=== PATIENT | male | born 1980 | race Caucasian/White ===

== ENCOUNTER 2017-03-24 09:10 | Emergency (ER) | payer OTHER ==
[~2017-03-24] VITALS: Ht 175.2 cm; Wt 59.0 kg
[~2017-03-24 09:10] MED LIST: 'XANAX1 MG PO; AMOXICILLIN500 MG PO; CLINDAMYCIN HC300 MG PO; FLEXERIL10 MG PO; HYDROCODONE BIT1 T11 PO; MEDROL DOSEPAK4 MG PO; MOTRIN800 MG PO; NAPROSYN500 MG PO; NKHM; ONDANSETRON4 MG SL; TRAMADOL HCL50 MG PO; TRIMOX500 MG PO; TYLENOL W/CODEI1 TA4 PO; ULTRAM50 MG PO; VALIUM10 MG PO; VICODIN ES 7501 TAB PO; ZYPREXA5 M1 PO
[2017-03-24 09:21] VITALS: BP 129/90
[2017-03-24] MEDS ORDERED: OLANZAPINE15 M2 PO (09:23)
[2017-03-24] MEDS ORDERED: ZOFRAN ODT4 MG SL (10:22)
== END 2017-03-24 11:09 | disposition home or self-care (01) ==
LOC: ED 09:10
DX: K52.9 Noninfective gastroenteritis and colitis, unspecified (principal); F17.200 Nicotine dependence, unspecified, uncomplicated; Z91.018 Allergy to other foods; Z90.49 Acquired absence of other specified parts of digestive tract

== ENCOUNTER 2017-03-26 09:34 | Emergency (ER) | payer OTHER ==
[~2017-03-26] VITALS: Ht 175.2 cm; Wt 59.0 kg
[~2017-03-26 09:34] MED LIST changes: +OLANZAPINE15 M2 PO; +ZOFRAN ODT4 MG SL
[2017-03-26 09:48] VITALS: BP 127/81
[2017-03-26 11:07] LABS: BASO # 0.1 10*3/uL (0.0-0.1); BASO % 0.6 % (0.0-1.0); EOS # 0.1 10*3/uL (0.0-0.4); EOS % 0.6 % (1.0-4.0); HEMATOCRIT 43.2 % (42.0-52.0); HEMOGLOBIN 15.2 g/dl (14.0-18.0); LYMPH # 2.8 10*3/uL (1.3-4.4); LYMPH % 26.6 % (27.0-41.0); MEAN CELL VOLUME 94.3 fl (80.0-94.0); MEAN CORPUSCULAR HGB 33.2 pg (27.0-31.0); MEAN CORPUSCULAR HGB CONC 35.2 g/dl (33.0-37.0); MONO # 0.7 10*3/uL (0.1-1.0); MONO % 7.1 % (3.0-9.0); NEUT # 6.7 10*3/uL (2.3-7.9); NEUT % 64.8 % (47.0-73.0); PLATELET COUNT AUTOMATED 321 10*3/uL (130-400); RED BLOOD COUNT 4.58 10*6/uL (4.50-5.90); RED CELL DISTRI WIDTH 11.9 % (0-14.5); WHITE BLOOD COUNT 10.4 10*3/uL (4.8-10.8)
[2017-03-26 11:20] LABS: ALBUMIN 4.3 gm/dl (3.1-4.5); ALKALINE PHOSPHATASE 64 U/L (45-117); BILIRUBIN, DIRECT 0.1 mg/dL (0.0-0.2); BILIRUBIN, TOTAL 0.6 mg/dl (0.2-1.0); BUN 5 mg/dl (7-24); CARBON DIOXIDE 26 mmol/L (21-32); CHLORIDE 107 mmol/L (98-107); EST GLOM FILT AFRICAN AMERICAN > 60 ml/min; GLUCOSE 90 mg/dL (65-99); POTASSIUM 4.2 mmol/L (3.5-5.1); SGOT/AST 10 IU/L (3-35); SGPT/ALT 18 U/L (12-78); SODIUM 141 mmol/L (136-145); TOTAL PROTEIN 8.1 gm/dL (6.4-8.2)
[2017-03-26 13:04] LABS: LA>2 REFLEX 2 HR DRAW NOW
== END 2017-03-26 12:00 | disposition left against medical advice (07) ==
LOC: ED 09:34
PROVIDERS: Emergency Medicine
DX: R10.9 Unspecified abdominal pain (principal); R19.7 Diarrhea, unspecified; R11.2 Nausea with vomiting, unspecified; F17.200 Nicotine dependence, unspecified, uncomplicated; F12.90 Cannabis use, unspecified, uncomplicated; Z90.49 Acquired absence of other specified parts of digestive tract; Z91.018 Allergy to other foods

== ENCOUNTER 2017-03-28 09:03 | Emergency (ER) | payer OTHER ==
[~2017-03-28] VITALS: Ht 175.2 cm; Wt 59.0 kg
[2017-03-28] MEDS ORDERED: ONDANSETRON HYDR4 M1 PO (09:15)
[2017-03-28 09:38] LABS: BASO # 0.1 10*3/uL (0.0-0.1); BASO % 0.7 % (0.0-1.0); EOS # 0.1 10*3/uL (0.0-0.4); EOS % 0.9 % (1.0-4.0); HEMATOCRIT 42.3 % (42.0-52.0); LYMPH # 1.8 10*3/uL (1.3-4.4); LYMPH % 17.3 % (27.0-41.0); MEAN CELL VOLUME 93.8 fl (80.0-94.0); MEAN CORPUSCULAR HGB 33.3 pg (27.0-31.0); MEAN CORPUSCULAR HGB CONC 35.5 g/dl (33.0-37.0); MEAN PLATELET VOLUME 9.8 fl (9.6-12.3); MONO # 0.7 10*3/uL (0.1-1.0); MONO % 6.5 % (3.0-9.0); NEUT # 7.8 10*3/uL (2.3-7.9); NEUT % 74.4 % (47.0-73.0); PLATELET COUNT AUTOMATED 308 10*3/uL (130-400); RED BLOOD COUNT 4.51 10*6/uL (4.50-5.90); RED CELL DISTRI WIDTH 11.9 % (0-14.5); WHITE BLOOD COUNT 10.4 10*3/uL (4.8-10.8)
[2017-03-28 09:55] LABS: ALBUMIN 4.4 gm/dl (3.1-4.5); ALKALINE PHOSPHATASE 62 U/L (45-117); BILIRUBIN, TOTAL 0.7 mg/dl (0.2-1.0); BUN 7 mg/dl (7-24); C-REACTIVE PROTEIN 0.37 MG/DL (0-0.3); CARBON DIOXIDE 25 mmol/L (21-32); CHLORIDE 108 mmol/L (98-107); EST GLOM FILT AFRICAN AMERICAN > 60 ml/min; GLUCOSE 99 mg/dL (65-99); POTASSIUM 3.9 mmol/L (3.5-5.1); SGOT/AST 19 IU/L (3-35); SGPT/ALT 16 U/L (12-78); SODIUM 142 mmol/L (136-145)
[2017-03-28 11:25] VITALS: BP 121/73
[2017-03-28] MEDS ORDERED: PHENERGAN25 M3 PO (11:25)
== END 2017-03-28 11:31 | disposition home or self-care (01) ==
LOC: ED 09:03
PROVIDERS: Student in an Organized Health Care Education/Training Program
DX: A08.4 Viral intestinal infection, unspecified (principal); F17.200 Nicotine dependence, unspecified, uncomplicated; Z90.49 Acquired absence of other specified parts of digestive tract; Z91.018 Allergy to other foods

== ENCOUNTER 2017-07-19 13:28 | Emergency (ER) | payer SELFPAY ==
[~2017-07-19] VITALS: Ht 175.2 cm; Wt 59.0 kg
[~2017-07-19 13:28] MED LIST changes: +ONDANSETRON HYDR4 M1 PO; +PHENERGAN25 M3 PO
[2017-07-19 14:03] VITALS: BP 127/72
== END 2017-07-19 14:52 | disposition home or self-care (01) ==
LOC: ED 13:28
DX: Z00.00 Encounter for general adult medical examination without abnormal findings (principal); F17.200 Nicotine dependence, unspecified, uncomplicated; Z90.49 Acquired absence of other specified parts of digestive tract; Z91.018 Allergy to other foods

== ENCOUNTER 2017-09-08 12:28 | Emergency (ER) | payer SELFPAY ==
[~2017-09-08] VITALS: Wt 59.0 kg
[2017-09-08 12:31] VITALS: BP 148/93
[2017-09-08] MEDS ORDERED: ZOFRAN ODT4 MG SL (12:41)
== END 2017-09-08 13:45 | disposition home or self-care (01) ==
LOC: ED 12:28
DX: R11.2 Nausea with vomiting, unspecified (principal); F17.200 Nicotine dependence, unspecified, uncomplicated; Z90.49 Acquired absence of other specified parts of digestive tract; Z91.018 Allergy to other foods

== ENCOUNTER 2017-10-30 11:52 | Emergency (ER) | payer SELFPAY ==
[~2017-10-30] VITALS: Ht 175.2 cm; Wt 59.0 kg
[2017-10-30 11:56] VITALS: BP 124/78
[2017-10-30 12:13] LABS: BASO # 0.1 10*3/uL (0.0-0.1); BASO % 0.7 % (0.0-1.0); EOS # 0.1 10*3/uL (0.0-0.4); EOS % 1.4 % (1.0-4.0); HEMOGLOBIN 14.5 g/dl (14.0-18.0); LYMPH # 2.8 10*3/uL (1.3-4.4); LYMPH % 28.7 % (27.0-41.0); MEAN CELL VOLUME 95.5 fl (80.0-94.0); MEAN CORPUSCULAR HGB CONC 34.5 g/dl (33.0-37.0); MEAN PLATELET VOLUME 9.5 fl (9.6-12.3); MONO # 0.8 10*3/uL (0.1-1.0); MONO % 7.8 % (3.0-9.0); NEUT # 5.9 10*3/uL (2.3-7.9); NEUT % 61.1 % (47.0-73.0); PLATELET COUNT AUTOMATED 312 10*3/uL (130-400); RED CELL DISTRI WIDTH 12.2 % (0-14.5); WHITE BLOOD COUNT 9.7 10*3/uL (4.8-10.8)
[2017-10-30 12:28] LABS: ALBUMIN 3.9 gm/dl (3.1-4.5); ALKALINE PHOSPHATASE 87 U/L (45-117); BUN 7 mg/dl (7-24); CHLORIDE 102 mmol/L (98-107); CREATININE 0.85 mg/dL (0.70-1.30); LIPASE 79 U/L (73-393); POTASSIUM 4.2 mmol/L (3.5-5.1); SGOT/AST 19 IU/L (3-35); SGPT/ALT 25 U/L (12-78); SODIUM 137 mmol/L (136-145); TOTAL PROTEIN 7.9 gm/dL (6.4-8.2)
[2017-10-30] MEDS ORDERED: ZOFRAN4 MG PO (12:35)
== END 2017-10-30 12:57 | disposition home or self-care (01) ==
LOC: ED 11:52
PROVIDERS: Nurse Practitioner Family
DX: K52.9 Noninfective gastroenteritis and colitis, unspecified (principal); F33.9 Major depressive disorder, recurrent, unspecified; F17.200 Nicotine dependence, unspecified, uncomplicated; Z91.018 Allergy to other foods; Z79.899 Other long term (current) drug therapy; Z90.49 Acquired absence of other specified parts of digestive tract

== ENCOUNTER 2017-11-01 11:45 | Emergency (ER) | payer SELFPAY ==
[~2017-11-01] VITALS: Ht 175.2 cm; Wt 59.0 kg
[~2017-11-01 11:45] MED LIST changes: +ZOFRAN4 MG PO
[2017-11-01 12:18] LABS: BASO # 0.1 10*3/uL (0.0-0.1); BASO % 0.5 % (0.0-1.0); EOS % 0.1 % (1.0-4.0); HEMATOCRIT 43.1 % (42.0-52.0); HEMOGLOBIN 15.3 g/dl (14.0-18.0); LYMPH # 2.1 10*3/uL (1.3-4.4); LYMPH % 19.2 % (27.0-41.0); MEAN CELL VOLUME 93.3 fl (80.0-94.0); MEAN CORPUSCULAR HGB 33.1 pg (27.0-31.0); MEAN CORPUSCULAR HGB CONC 35.5 g/dl (33.0-37.0); MEAN PLATELET VOLUME 9.7 fl (9.6-12.3); MONO # 0.6 10*3/uL (0.1-1.0); MONO % 5.3 % (3.0-9.0); NEUT # 8.1 10*3/uL (2.3-7.9); NEUT % 74.6 % (47.0-73.0); PLATELET COUNT AUTOMATED 323 10*3/uL (130-400); RED BLOOD COUNT 4.62 10*6/uL (4.50-5.90); RED CELL DISTRI WIDTH 12.1 % (0-14.5); WHITE BLOOD COUNT 10.8 10*3/uL (4.8-10.8)
[2017-11-01 12:33] LABS: ALBUMIN 4.1 gm/dl (3.1-4.5); ALKALINE PHOSPHATASE 90 U/L (45-117); BUN 11 mg/dl (7-24); CHLORIDE 104 mmol/L (98-107); CREATININE 0.94 mg/dL (0.70-1.30); LIPASE 80 U/L (73-393); POTASSIUM 3.9 mmol/L (3.5-5.1); SGOT/AST 20 IU/L (3-35); SGPT/ALT 25 U/L (12-78); SODIUM 138 mmol/L (136-145); TOTAL PROTEIN 8.5 gm/dL (6.4-8.2)
[2017-11-01 13:40] VITALS: BP 120/80
== END 2017-11-01 14:41 | disposition home or self-care (01) ==
LOC: ED 11:45
PROVIDERS: Nurse Practitioner Family
DX: K52.9 Noninfective gastroenteritis and colitis, unspecified (principal); F17.200 Nicotine dependence, unspecified, uncomplicated; Z90.49 Acquired absence of other specified parts of digestive tract; Z79.899 Other long term (current) drug therapy; Z91.018 Allergy to other foods

== ENCOUNTER 2018-04-11 11:27 | Emergency (ER) | payer SELFPAY ==
[~2018-04-11] VITALS: Ht 175.2 cm; Wt 74.8 kg
[2018-04-11 11:28] VITALS: BP 148/82
[2018-04-11] MEDS ORDERED: ZOFRAN4 MG PO (11:35)
[2018-04-11 11:49] LABS: BASO % 0.4 % (0.0-1.0); EOS % 0.1 % (1.0-4.0); HEMATOCRIT 42.4 % (42.0-52.0); LYMPH # 1.7 10*3/uL (1.3-4.4); LYMPH % 15.6 % (27.0-41.0); MEAN CELL VOLUME 92.4 fl (80.0-94.0); MEAN CORPUSCULAR HGB 32.7 pg (27.0-31.0); MEAN CORPUSCULAR HGB CONC 35.4 g/dl (33.0-37.0); MEAN PLATELET VOLUME 10.3 fl (9.6-12.3); MONO # 0.6 10*3/uL (0.1-1.0); MONO % 5.9 % (3.0-9.0); NEUT # 8.3 10*3/uL (2.3-7.9); NEUT % 77.8 % (47.0-73.0); PLATELET COUNT AUTOMATED 300 10*3/uL (130-400); RED BLOOD COUNT 4.59 10*6/uL (4.50-5.90); RED CELL DISTRI WIDTH 12.2 % (0-14.5); WHITE BLOOD COUNT 10.6 10*3/uL (4.8-10.8)
[2018-04-11 12:09] LABS: ALBUMIN 4.7 gm/dl (3.1-4.5); ALKALINE PHOSPHATASE 85 U/L (45-117); BUN 12 mg/dl (7-24); CHLORIDE 104 mmol/L (98-107); LIPASE 52 U/L (73-393); POTASSIUM 3.4 mmol/L (3.5-5.1); SGOT/AST 12 IU/L (3-35); SGPT/ALT 23 U/L (12-78); SODIUM 139 mmol/L (136-145); TOTAL PROTEIN 8.5 gm/dL (6.4-8.2)
== END 2018-04-11 12:59 | disposition home or self-care (01) ==
LOC: ED 11:27
PROVIDERS: Nurse Practitioner Family
DX: K52.9 Noninfective gastroenteritis and colitis, unspecified (principal); R03.0 Elevated blood-pressure reading, without diagnosis of hypertension; F32.9 Major depressive disorder, single episode, unspecified; Z91.018 Allergy to other foods; Z79.899 Other long term (current) drug therapy; Z90.49 Acquired absence of other specified parts of digestive tract

== ENCOUNTER 2018-05-25 07:08 | Inpatient (IN) | payer SELFPAY ==
[~2018-05-25] VITALS: Ht 175.2 cm; Wt 70.4 kg
[2018-05-25] VITALS (12 sets, daily range): BP systolic 116–1344; BP diastolic 73–94
--- NOTE | ~2018-05-25 | O ---
[place], [place] OPERATIVE NOTE NAME: [id number] UNIT #: [id number] ROOM: 403 DOCTOR: BRYCE BATEMAN MD BIRTHDATE: [birth year] DOS: 05/25/2018 GASTROENDOSCOPIC REPORT HISTORY: This is a 38-year-old patient who presented with a chief complaint of relentless nausea and vomiting. His radiologic studies and his laboratory values have been within normal limits. The patient with a history of previous cholecystectomy, normal LFTs, normal Lactic acid normal lipase, stable and normal CBC with white blood cell 10, H and H of 14 and 40. PROCEDURE: Today's procedure part of investigation is panendoscopy plus biopsy. PREMEDICATION: propofol. SCOPE: Olympus forward-viewing gastroscope Q10 video. REPORT: After putting the patient in left lateral position and application of lubricant to the scope, the scope was introduced. Thereafter, under direct visualization, advanced through the length of esophagus without difficulty. Small hiatal hernia was encountered. Gastric pouch was entered. Gastritis was noticed. Duodenal bulb, second and third part consistent with duodenitis. Antral biopsy obtained for H. pylori. The patient was gradually extubated and tolerated the procedure well. IMPRESSION: Gastritis, duodenitis. The patient is most likely responds to PPI therapy. An outpatient followup can be organized. Labs reviewed and records reviewed. DIET: Soft. BRYCE BATEMAN MD CM:OPRECORD:OPERATIVE NOTE [id number] BRYCE BATEMAN MD 05/25/18 1737 interface
--- NOTE | ~2018-05-25 | CON ---
[place], [place] REPORT OF CONSULTATION NAME: JOSE LUIS AMBRIZ UNIT #: [id number] ROOM: 403 DOCTOR: BHAVANA ACEVEDOBRYCE BIRTHDATE: [birth year] DOS: 05/25/2018 GASTROENDOSCOPIC REPORT HISTORY OF PRESENT ILLNESS: This is a 38-year-old patient who presented with a chief complaint of recurrent emesis since Wednesday, he has not been able to eat much. He is not alcohol consumer. He is not on any drugs. He had old cholecystectomy. However, his urinalysis for drugs shows benzodiazepines and urine for THC. He had a CT scan of the abdomen and pelvis done, no acute pathology was identified. Comprehensive metabolic panel, electrolyte balance. Liver functions normal. Lipase normal. Kidneys within normal limits. Alcohol level less than 3. Lactic acid 1.3. CT scan with contrast again did not yield any pathology. PAST MEDICAL HISTORY: Associated with anxiety, past gastroenteritis, depression. PAST SURGICAL HISTORY: Cholecystectomy and dental. ALLERGIES: STRAWBERRY. No known medication allergies. SOCIAL HISTORY: Smoker, a [id number] a day. Nonalcohol consumer. MEDICATIONS: Xanax and Zyprexa. REVIEW OF SYSTEMS: HEENT: Denies double vision or blurred vision. RESPIRATORY: Denies acute shortness of breath. CARDIOVASCULAR: Denies acute chest pain. DIGESTIVE SYSTEM: Nausea and vomiting relentlessly. PHYSICAL EXAMINATION: VITAL SIGNS: Stable. HEENT: Head is normocephalic, nontraumatic. Mouth and buccal mucosa, poor dental hygiene. NECK: Supple. No thyromegaly. CHEST: Symmetric anatomy, equal expansion. No wheeze. No rhonchi. HEART: Normal sinus rhythm. No gallop. No murmur. ABDOMEN: Soft. No hepato-organomegaly. Bowel sounds present. No pulsatile mass. EXTREMITIES: No cyanosis. No pedal edema. NEUROLOGIC: Alert and oriented. IMPRESSION: Relentless nausea and vomiting, ruling out hiatal hernia, ruling out esophageal moniliasis versus esophageal ulcers. His labs and records have been reviewed. Endoscopic assessment of upper GI tract and clinical re-assessment. [place], [place] REPORT OF CONSULTATION NAME: JOSE LUIS AMBRIZ UNIT #: [id number] ROOM: 403 DOCTOR: BHAVANA ACEVEDO,BRYCE BIRTHDATE: [birth year] BRYCE BATEAMN MD CM:CONSTR:REPORT OF CONSULTATION 1617 06/01/18 0716 interface
[~2018-05-25 07:08] MED LIST changes: +CARAFATE1 G1 PO; +DICYCLOMINE HCL10 MG PO; -OLANZAPINE15 M2 PO; +OXCARBAZEPINE150 MG PO; +SUNMARK OMEPRAZ20 M1 PO; +ZYPREXA15 M1 PO
[2018-05-25 07:45] LABS: BILIRUBIN NEGATIVE (NEGATIVE); BLOOD 1+ (NEGATIVE); CLARITY CLEAR (CLEAR); COLOR YELLOW (YELLOW); GLUCOSE NEGATIVE (NEGATIVE); KETONE 3+ (NEGATIVE); LEUKO ESTERASE NEGATIVE (NEGATIVE); NITRITE NEGATIVE (NEGATIVE); SPECIFIC GRAVITY <= 1.005 (1.005-1.030)
[2018-05-25 07:57] LABS: BACTERIA TRACE
[2018-05-25 08:03] LABS: BASO % 0.4 % (0.0-1.0); EOS % 0.3 % (1.0-4.0); HEMATOCRIT 40.1 % (42.0-52.0); HEMOGLOBIN 14.3 g/dl (14.0-18.0); LYMPH # 1.5 10*3/uL (1.3-4.4); LYMPH % 13.6 % (27.0-41.0); MEAN CELL VOLUME 93.5 fl (80.0-94.0); MEAN CORPUSCULAR HGB 33.3 pg (27.0-31.0); MEAN CORPUSCULAR HGB CONC 35.7 g/dl (33.0-37.0); MEAN PLATELET VOLUME 9.8 fl (9.6-12.3); MONO # 0.6 10*3/uL (0.1-1.0); NEUT # 8.5 10*3/uL (2.3-7.9); NEUT % 79.3 % (47.0-73.0); PLATELET COUNT AUTOMATED 273 10*3/uL (130-400); RED BLOOD COUNT 4.29 10*6/uL (4.50-5.90); RED CELL DISTRI WIDTH 12.1 % (0-14.5); WHITE BLOOD COUNT 10.7 10*3/uL (4.8-10.8)
[2018-05-25 08:18] LABS: ALKALINE PHOSPHATASE 90 U/L (45-117); BUN 6 mg/dl (7-24); CHLORIDE 106 mmol/L (98-107); LIPASE 72 U/L (73-393); POTASSIUM 3.7 mmol/L (3.5-5.1); SGOT/AST 12 IU/L (3-35); SGPT/ALT 27 U/L (12-78); SODIUM 137 mmol/L (136-145); TOTAL PROTEIN 7.6 gm/dL (6.4-8.2)
[2018-05-26] VITALS: BP 127/78
[2018-05-26 06:47] LABS: BASO # 0.1 10*3/uL (0.0-0.1); BASO % 0.7 % (0.0-1.0); EOS # 0.1 10*3/uL (0.0-0.4); EOS % 1.3 % (1.0-4.0); HEMATOCRIT 37.9 % (42.0-52.0); HEMOGLOBIN 12.8 g/dl (14.0-18.0); LYMPH # 2.5 10*3/uL (1.3-4.4); LYMPH % 27.8 % (27.0-41.0); MEAN CORPUSCULAR HGB 33.3 pg (27.0-31.0); MEAN CORPUSCULAR HGB CONC 33.8 g/dl (33.0-37.0); MEAN PLATELET VOLUME 10.2 fl (9.6-12.3); MONO # 0.6 10*3/uL (0.1-1.0); MONO % 6.4 % (3.0-9.0); NEUT # 5.7 10*3/uL (2.3-7.9); NEUT % 63.6 % (47.0-73.0); PLATELET COUNT AUTOMATED 272 10*3/uL (130-400); RED BLOOD COUNT 3.84 10*6/uL (4.50-5.90); RED CELL DISTRI WIDTH 12.5 % (0-14.5)
[2018-05-26 06:59] LABS: MEAN CELL VOLUME 98.7 fl (80.0-94.0)
[2018-05-26 07:13] LABS: BUN 6 mg/dl (7-24); CHLORIDE 109 mmol/L (98-107); CHOLESTEROL 170 mg/dL (<200); CREATININE 0.69 mg/dL (0.70-1.30); PHOSPHOROUS 3.1 mg/dL (2.5-4.9); SODIUM 141 mmol/L (136-145); TRIGLYCERIDES 99 mg/dl (<150); VLDL CHOLESTEROL 20 mg/dL (6-40)
[2018-05-26 07:24] LABS: FREE T4 1.17 ng/dl (0.76-1.46); HDL CHOLESTEROL 28 mg/dl (40-60); LDL CHOLESTEROL 122 mg/dL (9-159)
[2018-05-26 07:42] LABS: VITAMIN D, 25-HYDROXY 15.8 ng/mL (30-100)
[2018-05-26 08:00] VITALS: BP 106/67
[2018-05-26 12:00] VITALS: BP 127/78
[2018-05-26] MEDS ORDERED: VITAMIN D31000 UNI1 PO (14:25)
[2018-05-26] MEDS ORDERED: PANTOPRAZOLE SO40 MG PO (14:25)
== END 2018-05-26 15:14 | disposition home or self-care (01) | DRG 378 ==
LOC: ED 07:08 → EDHOLD 11:26 → 4E 11:26
PROVIDERS: Emergency Medicine; Internal Medicine
PROC: 0DB68ZX Excision of Stomach, Via Natural or Artificial Opening Endoscopic, Diagnostic (ICD-10-PCS; principal; 2018-05-25)
DX: K29.71 Gastritis, unspecified, with bleeding (principal); F33.9 Major depressive disorder, recurrent, unspecified; K29.81 Duodenitis with bleeding; R00.1 Bradycardia, unspecified; D53.9 Nutritional anemia, unspecified; R31.9 Hematuria, unspecified; I10 Essential (primary) hypertension; E55.9 Vitamin D deficiency, unspecified; F41.9 Anxiety disorder, unspecified; F17.210 Nicotine dependence, cigarettes, uncomplicated; K44.9 Diaphragmatic hernia without obstruction or gangrene; Z90.49 Acquired absence of other specified parts of digestive tract; Z79.899 Other long term (current) drug therapy; Z71.6 Tobacco abuse counseling; Z91.018 Allergy to other foods; Z83.3 Family history of diabetes mellitus; Z82.5 Family history of asthma and other chronic lower respiratory diseases

== ENCOUNTER → 2019-09-27 | Outpatient (CLI) | payer OTHER ==
[~2019-09-27] MED LIST changes: +PANTOPRAZOLE SO40 MG PO; +QUDEXY XR50 MG PO; +VITAMIN D31000 UNI1 PO
== END | disposition home or self-care (01) ==
LOC: CT 09-19 09:00
DX: G43.101 Migraine with aura, not intractable, with status migrainosus (principal)

== ENCOUNTER 2024-05-16 14:57 | Emergency (ER) | payer OTHER ==
[~2024-05-16] VITALS: Ht 175.2 cm; Wt 68.0 kg
[2024-05-16 15:04] VITALS: BP 119/90
[2024-05-16] MEDS ORDERED: CYCLOBENZAPRINE10 MG PO (15:13)
[2024-05-16] MEDS ORDERED: TRAZODONE50 MG PO (15:14)
[2024-05-16] MEDS ORDERED: IBU800 M1 PO (15:15)
[2024-05-16] MEDS ORDERED: DULOXETINE HCL60 MG PO (15:15)
[2024-05-16] MEDS ORDERED: PRAVASTATIN SOD10 MG PO (15:16)
[2024-05-16] MEDS ORDERED: HALOPERIDOL5 MG PO (15:19)
[2024-05-16] MEDS ORDERED: MORPHINE Sulfate 2 MG/ML SYR IV ONE (15:20)
[2024-05-16] MEDS ORDERED: SODIUM CHLORIDE 0.9% 1,000 ML IV ONE (15:20)
[2024-05-16] MEDS ORDERED: OXCARBAZEPINE300 M1 PO (15:20)
[2024-05-16 15:56] LABS: BASO # 0.1 10*3/uL (0.0-0.1); BASO % 0.6 % (0.0-1.0); EOS # 0.2 10*3/uL (0.0-0.4); EOS % 1.7 % (1.0-4.0); HEMATOCRIT 42.5 % (42.0-52.0); MEAN CELL VOLUME 95.9 fl (80.0-94.0); MEAN CORPUSCULAR HGB 33.4 pg (27.0-31.0); MEAN CORPUSCULAR HGB CONC 34.8 g/dl (33.0-37.0); MONO # 0.9 10*3/uL (0.1-1.0); MONO % 7.5 % (3.0-9.0); NEUT # 7.5 10*3/uL (2.3-7.9); NEUT % 63.9 % (47.0-73.0); PLATELET COUNT AUTOMATED 389 10*3/uL (130-400); RED BLOOD COUNT 4.43 10*6/uL (4.50-5.90); RED CELL DISTRI WIDTH 11.5 % (0-14.5); WHITE BLOOD COUNT 11.7 10*3/uL (4.8-10.8)
[2024-05-16 16:17] LABS: ALKALINE PHOSPHATASE 93 U/L (46-116); BUN 14 mg/dl (9-23); CHLORIDE 112 mmol/L (98-107); LIPASE 26 U/L (12-53); POTASSIUM 3.7 mmol/L (3.4-5.1); SGPT/ALT 16 U/L (5-49)
[2024-05-16] MEDS ORDERED: IOHEXOL 300 MG/ML 100 ML VIAL IV ONE (16:20)
== END 2024-05-16 18:35 | disposition home or self-care (01) ==
LOC: ED 14:57
PROVIDERS: Internal Medicine
DX: R10.9 Unspecified abdominal pain (principal); R11.2 Nausea with vomiting, unspecified; F17.200 Nicotine dependence, unspecified, uncomplicated; Z91.018 Allergy to other foods; Z90.49 Acquired absence of other specified parts of digestive tract